=== PATIENT | male | born 1940 | race Hispanic/Latino ===

== ENCOUNTER 2018-11-02 17:08 | Inpatient (IN) | payer OTHER | END 2018-11-05 14:55 | disposition home or self-care (01) | LOC: EDH 17:08 → 3AH 11-03 01:19 → EDHIP 19:45 | DX: I49.5 Sick sinus syndrome (principal); Z95.0 Presence of cardiac pacemaker; I10 Essential (primary) hypertension; E03.9 Hypothyroidism, unspecified ==

== ENCOUNTER → 2019-04-27 | Outpatient (CLI) | payer OTHER ==
[~2019-04-27] MED LIST: LEVO100T12 PO; LISI10TA7 PO; METO-391 PO
--- NOTE | 2019-04-27 12:00 | NUR ---
MBSS COMPLETED. NON-TRANSIENT PENETRATION WITH THIN LIQUIDS VIA CONSECUTIVE CUP SIP. RECOMMEND REGULAR TEXTURE, THIN LIQUIDS VIA SINGLE CUP SIP; PILLS WHOLE WITH LIQUIDS. RECOMMENDATIONS: 1. GI CONSULT (PLEASE CONSIDER UPPER GI) 2. SKILLED SPEECH THERAPY 2-3XWK TARGETING SWALLOWING. Addendum: 04/28/19 at 0924 by MADDIE CAMARILLO, [facility] Amended: Links added.
== END | disposition home or self-care (01) ==
LOC: RAH 09:54
PROVIDERS: ATTEND Internal Medicine Gastroenterology
DX: R13.10 Dysphagia, unspecified (principal); R63.4 Abnormal weight loss; R63.3 Feeding difficulties; I10 Essential (primary) hypertension; E03.9 Hypothyroidism, unspecified; Z87.891 Personal history of nicotine dependence
CPT/HCPCS: 74230; 92611

== ENCOUNTER 2020-02-23 19:23 | Inpatient (IN) | payer OTHER ==
[~2020-02-23] VITALS: Ht 175.3 cm; Wt 62.1 kg
[2020-02-23] MEDS ORDERED: BISACODYL 10 MG SUPP.RECT RC ONE (20:35)
[2020-02-23 21:09] LABS: BASOPHILS % (AUTO) 0.3 % (0.0-5.0); HEMATOCRIT 34.8 % (42-54); LYMPHOCYTES % (AUTO) 14.5 % (21.0-51.0); MEAN CORPUSCULAR HGB CONC 34.2 g/dL (32.0-36.0); MEAN CORPUSCULAR VOLUME 87.7 fL (79-99); MONOCYTES % (AUTO) 8.8 % (3.0-13.0); NEUTROPHILS % (AUTO) 75.1 % (40.0-77.0); PLATELET COUNT (AUTO) 243 K/uL (130-400); RED BLOOD CELL COUNT(AUTO) 3.97 MIL/uL (4.50-6.20); RED CELL DISTRIBUTION WIDTH 13.5 % (11.0-15.5); WHITE BLOOD COUNT (AUTO) 11.7 K/uL (4.8-10.8)
[2020-02-23 21:18] LABS: CREATININE 1.6 mg/dL (0.5-1.5); POTASSIUM 4.7 mmol/L (3.5-5.1)
[2020-02-23 21:25] LABS: ALBUMIN 4.4 g/dL (3.5-5.0)
[2020-02-23] MEDS ORDERED: ACETAMINOPHEN 325 MG TAB PO PRN (23:45)
[2020-02-23] MEDS: SODIUM CHLORIDE 0.9% 1000ML 1,000 ML IV SCH (23:45)
[2020-02-24] MEDS ORDERED: LACTULOSE 20 GM/30 ML UDCUP ONE (00:07)
--- NOTE | 2020-02-24 02:10 | NUR ---
PATIENT RECEIVED FROM Fer, REPORT FROM RAYMUNDO DE ANDA. PATIENT IS 79 YR OLD MALE WITH DX OF IMPACTED STOOL. IMMEDIATELY ON ARRIVAL TO ROOM, PT STATED HE NEEDS TO USE THE BATHROOM. PER REPORT, T RECEIVED 2 FLEETS EMENAS, 1 SUPPOSITORY AND A DOSE OF LACTULOSE. PATIENT STATES HE WANTS TO SHOWER AFTER USING RESTROOM. WILL CONT TO MONITOR CLOSELY.
[2020-02-24 02:19] VITALS: BP 143/76
[2020-02-24 03:57] LABS: HEMATOCRIT 36.7 % (42-54); MEAN CORPUSCULAR HEMOGLOBIN 30.2 pg (27.0-33.0); MEAN CORPUSCULAR HGB CONC 33.8 g/dL (32.0-36.0); MEAN CORPUSCULAR VOLUME 89.3 fL (79-99); RED BLOOD CELL COUNT(AUTO) 4.11 MIL/uL (4.50-6.20); RED CELL DISTRIBUTION WIDTH 13.5 % (11.0-15.5)
[2020-02-24 03:58] LABS: CREATININE 1.8 mg/dL (0.5-1.5); POTASSIUM 4.9 mmol/L (3.5-5.1)
--- NOTE | 2020-02-24 05:21 | NUR ---
PATIENT ABLE TO TOLERATE 50% OF TAP WATER ENEMA. SMALL AMOUNT OF SOFT STOOL NOTED. HE DOES STATES THE PAIN FEELS LESS AND NOTED TO BE ABLE TO MOVE MORE. WILL CONT TO MONITOR.
[2020-02-24 07:58] VITALS: BP 129/91
[2020-02-24] MEDS: FAMOTIDINE 20MG TAB 20 MG TAB PO SCH (10:10)
--- NOTE | 2020-02-24 11:45 | NUR ---
TAP WATER ENEMA ABLE TO TOLERATE APPROXIMATELY 700ML OF TAP WATER ENEMA. PATIENT REPORTS NO DISCOMFORTS AT THIS TIME. WILL CONTINUE TO MONITOR.
[2020-02-24 12:00] VITALS: BP 142/65
[2020-02-24] MEDS: LACTULOSE 20 GM/30 ML UDCUP PO SCH ×3 (12:21→23:31)
[2020-02-24 16:31] VITALS: BP 139/53
[2020-02-24] MEDS ORDERED: PEG 3350/NA SULF,BICARB,CL/KCL 4000 ML SOLN PO SCH (18:45)
--- NOTE | 2020-02-24 19:40 | NUR ---
ASSESS PT SEEN IN THE BEDSIDE COMMODE ASSISTED BY SITTER. CLAIMS OF FEELING THE NEED TO DEFECATE EVERY FIVE MINUTES. REFUSED TO TAKE THE GOLYTELY HE CLAIMS HE IS ALREADY POOPING. SHIFT ASSESSMENT DONE, PLEASE REFER TO CHART. KEPT ON CLOSE WATCH WITH SITTER PT JUST GETS OUT OF BED WITHOUT CALLING. Addendum: 02/24/20 at 2045 by SWETHA RAMIREZ RN RN Amended: Links added.
[2020-02-24 20:00] VITALS: BP 144/60
--- NOTE | 2020-02-24 22:00 | NUR ---
ROUNDS PT ALREADY FAIRLY ASLEEP. NO DISTRESS NOTED. KEPT UNDISTURBED FOR NOW. WILL MONITOR PT. SITTER BY PT'S DOOR.
[2020-02-24] MEDS: SODIUM CHLORIDE 0.9% 1000ML 1,000 ML IV SCH (23:30)
--- NOTE | 2020-02-24 23:54 | NUR ---
CONFUSED PT WAS AWAKENED FOR V/S AND MEDS. V/S MONITORED BY PCP, STABLE. DUE MEDS ADMINISTERED. PT WAS CONFUSED AT THIS TIME. PT DOES NOT KNOW WHERE HE IS AND WHY HE WAS ADMITTED. RE-ORIENTED PT TO PERSON, TIME AND SPACE. RE-ITERATED FALL PRECAUTIONS HE JUST GOT OUT OF BED WITHOUT MINDING HIS PIV AND TUBING. PT CALM DOWN AND ASSISTED BACK TO BED AFTER USING THE BEDSIDE COMMODE. ENCOURAGED TO GO BACK TO SLEEP. WILL KEEP ON CLOSE WATCH WITH SITTER.
[2020-02-25] VITALS (7 sets, daily range): BP systolic 104–150; BP diastolic 35–59
[2020-02-25] MEDS: SODIUM CHLORIDE 0.9% 1000ML 1,000 ML IV SCH ×2 (01:34→15:52)
--- NOTE | 2020-02-25 02:00 | NUR ---
ROUNDS PT FAIRLY ASLEEP WITH RESPIRATIONS EVEN AND UNLABORED. NO NOTED DISTRESS. KEPT RESTED AND UNDISTURBED FOR NOW. WILL CONTINUE TO MONITOR. SITTER KEEPING CLOSE WATCH OF PT.
--- NOTE | 2020-02-25 05:37 | NUR ---
ASSIST PT HAD BEEN UP AND DOWN THE BED ASSISTED BY SITTER TRYING TO HAVE A BM IN THE BSC BUT ONLY PASSING GAS AND URINATING. PT CLAIMS MAYBE HE ALREADY MOVED ALL HIS STOOLS OUT. DENIES ANY ABDOMINAL PAINS. FOR MORE CARE.
[2020-02-25 05:54] LABS: BASOPHILS % (AUTO) 0.5 % (0.0-5.0); EOSINOPHILS % (AUTO) 3.4 % (0.0-8.0); HEMATOCRIT 36.5 % (42-54); LYMPHOCYTES % (AUTO) 12.8 % (21.0-51.0); MEAN CORPUSCULAR HEMOGLOBIN 29.8 pg (27.0-33.0); MEAN CORPUSCULAR HGB CONC 32.6 g/dL (32.0-36.0); MEAN CORPUSCULAR VOLUME 91.3 fL (79-99); MONOCYTES % (AUTO) 9.4 % (3.0-13.0); NEUTROPHILS % (AUTO) 73.4 % (40.0-77.0); PLATELET COUNT (AUTO) 228 K/uL (130-400); RED CELL DISTRIBUTION WIDTH 13.5 % (11.0-15.5); WHITE BLOOD COUNT (AUTO) 9.6 K/uL (4.8-10.8)
[2020-02-25 06:29] LABS: ALBUMIN 3.8 g/dL (3.5-5.0); BILIRUBIN,TOTAL 1.2 mg/dL (0.2-1.0); CREATININE 1.3 mg/dL (0.5-1.5); POTASSIUM 4.2 mmol/L (3.5-5.1); TOTAL PROTEIN, SERUM 7.2 g/dL (6.0-8.3)
[2020-02-25] MEDS: FAMOTIDINE 20MG TAB 20 MG TAB PO SCH (07:49)
[2020-02-25] MEDS: LACTULOSE 20 GM/30 ML UDCUP PO SCH (12:02)
[2020-02-25] MEDS ORDERED: DOCUSATE SODIUM 100 MG CAP PO SCH (15:15)
--- NOTE | 2020-02-25 15:27 | NUR ---
HOME MEDS TRIED TO CALL [facility] TO GET HOME MEDS, NO ANSWER AND UNABLE TO LEAVE [facility].
[2020-02-25] MEDS: DOCUSATE SODIUM 100 MG CAP PO SCH (15:30)
[2020-02-25] MEDS: ENOXAPARIN SODIUM 40 MG/0.4 ML SYRINGE SQ SCH (15:51)
[2020-02-25] MEDS ORDERED: LISINOPRIL PO (16:39)
[2020-02-25] MEDS ORDERED: OMEP40CA13 PO (16:39)
[2020-02-26] MEDS: LACTULOSE 20 GM/30 ML UDCUP PO SCH ×2 (00:29→11:47)
[2020-02-26 03:04] VITALS: BP 155/64
[2020-02-26] MEDS: SODIUM CHLORIDE 0.9% 1000ML 1,000 ML IV SCH (05:00)
[2020-02-26 05:22] LABS: MEAN CORPUSCULAR HEMOGLOBIN 29.2 pg (27.0-33.0); MEAN CORPUSCULAR HGB CONC 32.9 g/dL (32.0-36.0); MEAN CORPUSCULAR VOLUME 88.8 fL (79-99); RED BLOOD CELL COUNT(AUTO) 3.83 MIL/uL (4.50-6.20); RED CELL DISTRIBUTION WIDTH 13.2 % (11.0-15.5); WHITE BLOOD COUNT (AUTO) 7.8 K/uL (4.8-10.8)
[2020-02-26 05:35] LABS: CREATININE 1.1 mg/dL (0.5-1.5); POTASSIUM 4.3 mmol/L (3.5-5.1)
[2020-02-26 08:00] VITALS: BP 164/64
[2020-02-26] MEDS: FAMOTIDINE 20MG TAB 20 MG TAB PO SCH (09:19)
[2020-02-26] MEDS: DOCUSATE SODIUM 100 MG CAP PO SCH (09:19)
[2020-02-26] MEDS: ENOXAPARIN SODIUM 40 MG/0.4 ML SYRINGE SQ SCH (09:20)
[2020-02-26 12:00] VITALS: BP 150/56
--- NOTE | 2020-02-26 14:06 | NUR ---
SPOKE TO SPOUSE VIA PHONE FOR [place]. LIVES WITH SPOUSE, IS MOSTLY INDEPENDENT OF ADLS, DOES GET CONFUSED AT TIMES, AMBULATES WITH A WALKER, 2 STEPS OUTSIDE THE HOUSE, BUT HAS PROBLEMS GOING UP OR DOWN. NO PROVIDER OR HOME EHALTH SERVICES. TRANSPORT PER [facility], ADVISED SPOUSE THAT WE WERE WAITING FOR PATIENT TO HAVE A BM, THEN PROB DISCHARGE THIS AFTERNOON VEB UNDERSTANIDNG, REQUESTING SANIYA MACKEY ORDER RECD Addendum: 02/26/20 at 1409 by MAITE OBANDO RN CM Amended: Links added.
[2020-02-26 16:00] VITALS: BP 159/69
[2020-02-26 20:00] VITALS: BP 111/63
[2020-02-26] MEDS: POLYETHYLENE GLYCOL 3350 17 GM POWD.PACK PO SCH (20:47)
[2020-02-27] VITALS (7 sets, daily range): BP systolic 124–168; BP diastolic 51–62
[2020-02-27] MEDS: LACTULOSE 20 GM/30 ML UDCUP PO SCH ×2 (00:39→12:00)
[2020-02-27] MEDS: DOCUSATE SODIUM 100 MG CAP PO SCH (09:00)
[2020-02-27] MEDS: POLYETHYLENE GLYCOL 3350 17 GM POWD.PACK PO SCH ×2 (09:00→20:10)
[2020-02-27] MEDS: FAMOTIDINE 20MG TAB 20 MG TAB PO SCH (09:15)
[2020-02-27] MEDS: ENOXAPARIN SODIUM 40 MG/0.4 ML SYRINGE SQ SCH (09:15)
--- NOTE | 2020-02-27 20:00 | NUR ---
SITTER Received pt with a sitter,pt aao x 2.Denies pain or discomfort.Pt gets out of bed to the bathroom,shahram well.
[2020-02-28 04:09] VITALS: BP 130/48
[2020-02-28 04:48] LABS: BASOPHILS % (AUTO) 0.5 % (0.0-5.0); LYMPHOCYTES % (AUTO) 19.7 % (21.0-51.0); MEAN CORPUSCULAR HEMOGLOBIN 29.5 pg (27.0-33.0); MEAN CORPUSCULAR HGB CONC 33.6 g/dL (32.0-36.0); MEAN CORPUSCULAR VOLUME 87.8 fL (79-99); MONOCYTES % (AUTO) 9.6 % (3.0-13.0); NEUTROPHILS % (AUTO) 64.9 % (40.0-77.0); PLATELET COUNT (AUTO) 226 K/uL (130-400); RED BLOOD CELL COUNT(AUTO) 3.76 MIL/uL (4.50-6.20); WHITE BLOOD COUNT (AUTO) 6.5 K/uL (4.8-10.8)
[2020-02-28 05:09] LABS: POTASSIUM 4.2 mmol/L (3.5-5.1)
--- NOTE | 2020-02-28 07:15 | NUR ---
ASSESSMENT NOTE PT A/A X2 IN BED, NO PAIN AND HAS A SITTER.
[2020-02-28 07:54] VITALS: BP 152/67
[2020-02-28] MEDS: FAMOTIDINE 20MG TAB 20 MG TAB PO SCH (08:21)
[2020-02-28] MEDS: DOCUSATE SODIUM 100 MG CAP PO SCH (08:21)
[2020-02-28] MEDS: ENOXAPARIN SODIUM 40 MG/0.4 ML SYRINGE SQ SCH (08:22)
[2020-02-28] MEDS: LISINOPRIL 10 MG TABLET PO SCH (09:41)
[2020-02-28] MEDS: METOPROLOL SUCCINATE 50 MG TAB.SR.24H PO SCH (09:42)
[2020-02-28] MEDS: PANTOPRAZOLE SODIUM 40 MG TABLET.DR PO SCH (09:45)
[2020-02-28] MEDS ORDERED: DIATR MEGLU/DIATRIZOATE SODIUM 30 ML BOTTLE ONE (10:57)
[2020-02-28 11:39] VITALS: BP 105/57
[2020-02-28 16:00] VITALS: BP 132/53
--- NOTE | 2020-02-28 19:30 | NUR ---
PATIENT RECEIVED IN BED, CONT WITH 2:1 SUPERVISION. NO C/O PAIN VOICED AND NO S/S OF ACUTE DISTRESS NOTED. NEW PIV TO RIGHT FA 24 G INSERTED. WILL CONT TO MONITOR CLOSELY
[2020-02-28 20:43] VITALS: BP 141/55
[2020-02-28 22:55] VITALS: BP 158/59
[2020-02-28] MEDS ORDERED: POLY17PO4 PO (23:00)
[2020-02-29 04:10] VITALS: BP 127/56
[2020-02-29 07:53] VITALS: BP 147/60
--- NOTE | 2020-02-29 08:00 | NUR ---
ASSESSMENT NOTE PT IS IN BED SITTING UP FOR BREAKFAST, VS ARE STABLE AND HAS NO PAIN AT THIS TIME. PT DID HAVE A SM BOWEL MOVEMENT THIS AM.
[2020-02-29] MEDS: PANTOPRAZOLE SODIUM 40 MG TABLET.DR PO SCH (10:21)
[2020-02-29] MEDS: FAMOTIDINE 20MG TAB 20 MG TAB PO SCH (10:21)
[2020-02-29] MEDS: DOCUSATE SODIUM 100 MG CAP PO SCH (10:21)
[2020-02-29] MEDS: ENOXAPARIN SODIUM 40 MG/0.4 ML SYRINGE SQ SCH (10:22)
[2020-02-29] MEDS: METOPROLOL SUCCINATE 50 MG TAB.SR.24H PO SCH (10:23)
[2020-02-29] MEDS: LISINOPRIL 10 MG TABLET PO SCH (10:25)
[2020-02-29 11:28] VITALS: BP 125/57
--- NOTE | 2020-02-29 12:00 | NUR ---
PT IS DC FOR HOME UNABLE TO FIND HIS CLOTHES. I CALLED [facility] AND SHE DESCRIBED THE CLOTHES THAT PATIENT HAD BROUGHT WHEN HE WAS ADMITTED.
--- NOTE | 2020-02-29 14:00 | NUR ---
PT LOST CLOTHING PT WAS IN ROOM 304 BEFORE HE WAS TSF TO 223. WHERE NO CLOTHES WERE FOUND. PT AWARE, ITEMS STATED THAT WERE LOST IS BLACK GYM SHOES, RAFAEL/GREEN PAINTS AND A YELLOW SHIRT.
--- NOTE | 2020-02-29 14:30 | NUR ---
D/C PT IS A/A X 3 IS BEING D/C TO HOME, VIA WHEELCHAIR, AND PVT CAR. D/C INSTRUCTION GIVEN TO PATIENT, AND DISCUSSED WITH [facility]. PT HAD A SMALL BOWEL MOVEMENT THIS AM. PT. VS WERE STABLE NO COMPLICATIONS UPON D/C.
== END 2020-02-29 14:30 | disposition home or self-care (01) | DRG 390 ==
LOC: EDH 19:23 → EDHIP 22:24 → OBSVTOIN 22:24 → 3AH 02-24 01:34 → 3DH 02-24 16:20
PROVIDERS: ADMIT Internal Medicine Critical Care Medicine; ATTEND Internal Medicine Critical Care Medicine
DX: K56.41 Fecal impaction (principal); Z95.0 Presence of cardiac pacemaker; E03.9 Hypothyroidism, unspecified; K57.90 Diverticulosis of intestine, part unspecified, without perforation or abscess without bleeding
CPT/HCPCS: 36415; 74018; 74176; 80048; 80053; 84443; 85025; 85027; G0378; J1650; J7030; Q9963

== ENCOUNTER 2020-08-13 11:13 | Emergency (ER) | payer OTHER ==
[~2020-08-13 11:13] MED LIST changes: +LISI10TA24 PO; -LISI10TA7 PO; +OMEP40CA13 PO; +POLY17PO4 PO
[2020-08-13 12:49] LABS: BASOPHILS % (AUTO) 0.9 % (0.0-5.0); EOSINOPHILS % (AUTO) 1.7 % (0.0-8.0); HEMATOCRIT 38.3 % (42-54); LYMPHOCYTES % (AUTO) 12.6 % (21.0-51.0); MEAN CORPUSCULAR HEMOGLOBIN 28.3 pg (27.0-33.0); MEAN CORPUSCULAR HGB CONC 33.4 g/dL (32.0-36.0); MEAN CORPUSCULAR VOLUME 84.5 fL (79-99); MONOCYTES % (AUTO) 13.8 % (3.0-13.0); NEUTROPHILS % (AUTO) 70.7 % (40.0-77.0); PLATELET COUNT (AUTO) 190 K/uL (130-400); RED BLOOD CELL COUNT(AUTO) 4.53 MIL/uL (4.50-6.20); RED CELL DISTRIBUTION WIDTH 13.8 % (11.0-15.5); WHITE BLOOD COUNT (AUTO) 5.9 K/uL (4.8-10.8)
[2020-08-13] MEDS ORDERED: ACETAMINOPHEN-CODEINE 300/30MG TAB ONE (12:52)
[2020-08-13 13:10] LABS: CREATININE 1.3 mg/dL (0.5-1.5); POTASSIUM 4.8 mmol/L (3.5-5.1)
[2020-08-13 13:15] LABS: ALBUMIN 3.8 g/dL (3.5-5.0); BILIRUBIN,TOTAL 0.7 mg/dL (0.2-1.0); TOTAL PROTEIN, SERUM 7.4 g/dL (6.0-8.3)
== END 2020-08-13 13:46 | disposition home or self-care (01) ==
LOC: EDH 11:13
DX: S09.90XA Unspecified injury of head, initial encounter (principal); I10 Essential (primary) hypertension; E07.9 Disorder of thyroid, unspecified; Z79.899 Other long term (current) drug therapy; Z87.891 Personal history of nicotine dependence; W22.03XA Walked into furniture, initial encounter; Y93.89 Activity, other specified; Y92.89 Other specified places as the place of occurrence of the external cause; Y99.8 Other external cause status
CPT/HCPCS: 36415; 70450; 80053; 84484; 85025; 93005

== ENCOUNTER 2022-12-07 12:22 | Observation (INO) | payer MEDICARE, OTHER ==
[~2022-12-07] VITALS: Ht 170.2 cm; Wt 70.3 kg
[~2022-12-07 12:22] MED LIST changes: -OMEP40CA13 PO; +OMEP40CA21 PO
[2022-12-07] MEDS ORDERED: 0.9%NACL 1000ML 1,000 ML IV ONE (13:00)
[2022-12-07 13:06] LABS: BASOPHILS % (AUTO) 0.6 % (0.0-5.0); EOSINOPHILS % (AUTO) 6.8 % (0.0-8.0); HEMATOCRIT 32.6 % (42-54); LYMPHOCYTES % (AUTO) 12.6 % (21.0-51.0); MEAN CORPUSCULAR HEMOGLOBIN 26.1 pg (27.0-33.0); MEAN CORPUSCULAR HGB CONC 31.6 g/dL (32.0-36.0); MEAN CORPUSCULAR VOLUME 82.7 fL (79-99); MONOCYTES % (AUTO) 6.8 % (3.0-13.0); NEUTROPHILS % (AUTO) 72.8 % (40.0-77.0); PLATELET COUNT (AUTO) 190 K/uL (130-400); RED BLOOD CELL COUNT(AUTO) 3.94 MIL/uL (4.50-6.20); RED CELL DISTRIBUTION WIDTH 13.7 % (11.0-15.5)
[2022-12-07 13:19] LABS: INR 1.02 (0.85-1.15); PROTHROMBIN TIME 11.1 SEC (9.6-11.6)
[2022-12-07 13:21] LABS: PARTIAL THROMBOPLASTIN TIME 26.9 SEC (26.3-35.5)
[2022-12-07 13:25] LABS: CREATININE 1.6 mg/dL (0.5-1.5); POTASSIUM 4.7 mmol/L (3.5-5.1)
[2022-12-07 13:40] LABS: ALBUMIN 3.8 g/dL (3.5-5.0); THYROID STIMULATING HORMONE 0.03 uIU/mL (0.36-3.74); TOTAL PROTEIN, SERUM 6.9 g/dL (6.0-8.3)
[2022-12-07 14:49] LABS: APPEARANCE,URINE CLEAR (CLEAR); BILIRUBIN,URINE NEGATIVE (NEGATIVE); COLOR,URINE LIGHT-YELLOW (YELLOW); GLUCOSE, URINE (UA) NEGATIVE (NEGATIVE); KETONES,URINE NEGATIVE (NEGATIVE); LEUKOCYTE ESTERASE ,URINE NEGATIVE Leu/uL (NEGATIVE); NITRATE,URINE NEGATIVE (NEGATIVE); OCCULT BLOOD,URINE NEGATIVE (NEGATIVE); PH,URINE 5.5 (5.0-8.0); PROTEIN,URINE 10 mg/dL (NEGATIVE); UROBILINOGEN,URINE 0.2 mg/dL (0.2-1.0)
[2022-12-07 15:02] LABS: BACTERIA,URINE FEW /HPF (None Seen); MUCUS,URINE RARE LPF (None Seen); SQUAMOUS EPITHELIAL CELL,UR RARE /HPF (0-2)
[2022-12-07] MEDS ORDERED: ALBUTEROL 0.083% 2.5 MG/3 ML INH IH PRN (17:00)
[2022-12-07] MEDS ORDERED: GLUCAGON 1MG KIT 1 MG ML IM PRN (17:00)
[2022-12-07] MEDS ORDERED: POTASSIUM CHLORIDE 10% ELIXIR 20 MEQ/15 ML UDCUP PO PRN (17:00)
[2022-12-07] MEDS ORDERED: KCL 20 MEQ ERTAB PO PRN (17:00)
[2022-12-07] MEDS ORDERED: ZOLPIDEM TARTRATE 5 MG TAB PO PRN (17:00)
[2022-12-07] MEDS ORDERED: POLYETHYLENE GLYCOL 3350 17 GM POWD.PACK PO PRN (17:00)
[2022-12-07] MEDS ORDERED: DEXTROSE 50%-WATER 50 ML DISP.SYRIN IV PRN (17:00)
[2022-12-07] MEDS ORDERED: BENZOCAINE/MENTH/CETYLPYRD CL 1 EACH LOZENGE MM PRN (17:00)
[2022-12-07] MEDS ORDERED: LACTATED RINGERS 1000ML IV SCH (17:00)
[2022-12-07] MEDS ORDERED: GUAIFENESIN SUGAR-FREE 100 MG/5 ML UDCUP PO PRN (17:00)
[2022-12-07] MEDS ORDERED: ARTIFICAL TEARS SOL 15 ML OP PRN (17:00)
[2022-12-07] MEDS ORDERED: ONDANSETRON 4MG INJ IV PRN (17:00)
[2022-12-07] MEDS ORDERED: POTASSIUM CHLORIDE 20MEQ/100ML 100 ML IV PRN ×2 (17:00)
[2022-12-07] MEDS ORDERED: GUAIFENESIN-DM 200/20 MG 10 ML PO PRN (17:00)
[2022-12-07] MEDS ORDERED: NITROGLYCERIN 0.4 MG SL TAB SL PRN (17:00)
[2022-12-07] MEDS ORDERED: MAGNESIUM 2GM PREMIX 50ML 50 ML IV PRN (17:00)
[2022-12-07] MEDS ORDERED: LOPERAMIDE HCL 2 MG CAP PO PRN (17:00)
[2022-12-07] MEDS ORDERED: LACTULOSE 20 GM/30 ML UDCUP PO PRN (17:00)
[2022-12-07] MEDS ORDERED: MAG/ALUM/SIMETH 30 ML UDCUP PO PRN (17:00)
[2022-12-07] MEDS ORDERED: LACTATED RINGERS 1000ML 1,000 ML IV SCH (17:00)
[2022-12-07] MEDS ORDERED: DIPHENHYDRAMINE HCL 25 MG CAPSULE PO PRN (17:00)
[2022-12-07] MEDS ORDERED: DOCUSATE SODIUM 100 MG CAP PO PRN (17:00)
[2022-12-07] MEDS ORDERED: ACETAMINOPHEN 325 MG TAB PO PRN (17:00)
[2022-12-07] MEDS ORDERED: HYDRALAZINE 25MG TABLET PO PRN (17:00)
[2022-12-07 20:23] VITALS: BP 159/47
[2022-12-07] MEDS ORDERED: FAMOTIDINE 20MG TAB PO SCH (21:00)
== END 2022-12-07 20:32 | disposition left against medical advice (07) ==
LOC: EDH 12:22 → EDHIP 16:36
PROVIDERS: ADMIT Internal Medicine; ATTEND Internal Medicine
DX: E86.0 Dehydration (principal); I95.9 Hypotension, unspecified; N17.9 Acute kidney failure, unspecified; R41.82 Altered mental status, unspecified; R51.9 Headache, unspecified; Z95.0 Presence of cardiac pacemaker; Z79.899 Other long term (current) drug therapy; Z98.890 Other specified postprocedural states
CPT/HCPCS: 96360; 96361; 99285; 84443; 82550; 83735; 84484; 80053; 85025; 85610; 85730; 87040 ×2; 87088; 83605; 81001; 36415; 70450; 93005; 94664; G0378 ×4